=== PATIENT | male | born 1960 | race Caucasian/White ===

== ENCOUNTER 2022-09-25 14:26 | Emergency (ER) | payer BC ==
[~2022-09-25] VITALS: Ht 172.7 cm; Wt 86.0 kg
[2022-09-25 15:55] VITALS: BP 143/71
[2022-09-25] MEDS ORDERED: TETanus/Pertussis (Acell)/Diphther VAC/PF (Tdap-Adult) 0.5ml syringe IMVAC ONE (18:15)
[2022-09-25] MEDS ORDERED: LIDOcaine 1% W/epiNEPHrine 1:100,000 20ml vial SQ ONE (18:15)
[2022-09-25] MEDS ORDERED: LIDOcaine 1% w/EPI 1:100,000 30ml vial (MDV) SQ ONE (18:20)
== END 2022-09-25 19:47 | disposition home or self-care (01) ==
LOC: ER 14:27
DX: S61.215A Laceration without foreign body of left ring finger without damage to nail, initial encounter (principal); W11.XXXA Fall on and from ladder, initial encounter; Y93.89 Activity, other specified; Y92.89 Other specified places as the place of occurrence of the external cause; Y99.8 Other external cause status
CPT/HCPCS: 12001; 90471; 90715; 99283; J7030; 29130; A6449